=== PATIENT | male | born 1970 | race Caucasian/White ===

== ENCOUNTER 2019-05-26 19:44 | Emergency (ER) | payer OTHER | END 2019-05-26 20:16 | LOC: EDH 19:44 | DX: I10 Essential (primary) hypertension (principal); M79.89 Other specified soft tissue disorders; Z88.0 Allergy status to penicillin; Z88.6 Allergy status to analgesic agent; Z88.2 Allergy status to sulfonamides; Z79.899 Other long term (current) drug therapy | CPT/HCPCS: 99281 ==